=== PATIENT | female | born 1945 | race American Indian/Alaskan Native ===

== ENCOUNTER 2016-07-05 08:37 | Day surgery (SDC) | payer MEDICARE, OTHER ==
--- NOTE | 2016-07-05 07:14 | History and Physical - [facility] ---
CHIEF COMPLAINT/HISTORY OF CHIEF COMPLAINT: This patient presents with a history of post laminectomy radiculitis. On 01/17/12 a spinal cord stimulator [employer] was placed with initial good success. Over time she has been unable to gain appropriate patterns of stimulation across and into the back. Multiple attempts at reprogramming have failed. She was given the option to remove or replace with a different system and she opted to replace with a [employer] System. PAST MEDICAL HISTORY: Hypothyroidism and hypertension. PAST SURGICAL HISTORY: Knee replacement, hysterectomy, and breast surgery. MEDICATIONS ON ADMISSION: List to be provided. ALLERGIES: SULFA. FAMILY/PSYCHOSOCIAL HISTORY: Social history - Caffeine. Family history - Thyroid disease, coronary artery disease, and hypertension. SYSTEMS REVIEW: The patient is appropriate in no acute distress. The remainder of the systems review is positive for glasses, dentures, headaches, thyroid disease, sleep disturbance, blood pressure problems and degenerative arthritis. PHYSICAL EXAMINATION: Height is 5'5", weight is 200 pounds. Vital signs - Not available. HEENT: Within normal limits. LUNGS: Clear. HEART: Regular rate and rhythm. ABDOMEN: Nontender. MUSCULOSKELETAL: Examination of the musculoskeletal system shows the incision for the leads to approximate the generator pouch in the right posterior gluteal margin. Incisional sites are noted paramedian, all are intact. Sensory reyez are intact. NEUROLOGIC: Cranial nerves are intact. IMPRESSION: 1. INTRACTABLE LUMBAR RADICULITIS, ICD10 CODE M54.16 AND M54.17. 2. POST LUMBAR LAMINECTOMY SYNDROME, ICD10 CODE M96.1. 3. NONFUNCTIONAL SPINAL CORD STIMULATOR. PLAN: This patient is here for removal and replacement of a spinal cord stimulator. The procedure will be considered outpatient although an overnight stay will be evaluated. VANNESSA COOPER D.O. Date & Time JOB NUMBER: [id number] MTDD
[~2016-07-05 08:37] MED LIST: ACETAMINOPHEN 1000MG/100 ML PREMIX IV ONE; CEFAZOLIN 2 Gram 50 ML IVPB ONE; FAMOTIDINE 20MG TABLET PO ONE; MECLIZINE 25 MG TABLET PO ONE; METOCLOPRAMIDE 10 MG TABLET PO ONE
[2016-07-05] MEDS ORDERED: PROPOFOL 10 MG/ML VIAL IV ONE (14:00)
[2016-07-05] MEDS ORDERED: BUPIVACAINE 0.5% W/EPI MPF 30 ML VIAL IVP ONE (14:00)
[2016-07-05] MEDS ORDERED: CEFAZOLIN 1G VIAL IM ONE (14:00)
[2016-07-05] MEDS ORDERED: HYDROMORPHONE HCL 2 MG/ML VIAL IV ONE (14:00)
[2016-07-05] MEDS ORDERED: LIDOCAINE 1% W/EPI 1:200,000 MPF 30ML SQ ONE (14:00)
--- NOTE | 2016-07-06 10:35 | Operative Note ---
DATE OF SURGERY: 07/05/2016 PREOPERATIVE DIAGNOSES: 1. Lumbar radiculitis, ICD10 code M54.16 and M54.17. 2. Spinal cord stimulator with internal generator and 2 peripheral stimulators with internal generator. OPERATION: 1. Subcutaneous dissection and removal of 2 peripheral nerve stimulators. 2. Incision and subcutaneous dissection and removal of indwelling spinal cord stimulator. 3. Incision and subcutaneous dissection and removal of one internal pulse generator. 4. Fluoroscopic-guided left epidural access T11-12 Epimed, placement of spinal cord stimulator lead 1, a [employer] Infineon 16, 6 electrodes positioned left T7. 5. Complex programming of lead 1 for 20 minutes. 6. Fluoroscopic-guided epidural access left 12-1, placement of spinal cord stimulator lead 2, a [employer] Infineon 16, 6 electrodes positioned right T7. 7. Complex programming of lead 2 for 20 minutes. 8. Incision and subcutaneous dissection and anchoring of lead and lead 2 to supraspinous fascia using [employer] locking anchor. 9. Incision, subcutaneous dissection, and revision of subcutaneous pouch, right posterior gluteal margin for placement of generator identified as [employer] programmable rechargeable. 10. Tunneling between pouches, placement of external portion of lead 1 and lead 2 into generator pouch, each lead interfaced with bifurcate extension, each bifurcate extension interfaced to generator. 11. Placement of generator pouch securing to posterior fascia with nonabsorbable suture, placement of leads in the pouch, closure of incision with Vicryl for fascia, running subcuticular Vicryl for skin, closure of peripheral lead sites with Vicryl for fascia, subcuticular for skin. Dermabond closure at all sites. 12. Complex recovery room programming of internal generator, 2 stimulators recovery 20 minutes. Surgeon: Johan Jones DO Anesthesia: Local with sedation. Anesthesia Provider: Chandler Bell Indication: This patient presents with a history of intractable lumbar radiculitis. Currently managed by a single indwelling spinal cord stimulator and 2 peripheral nerve stimulators with internal generator all nonfunctional. She was given the option to remove or revise. She opted to revise. PROCEDURE: Intravenous line, vital signs monitoring, IV sedation. Prepped and draped in sterile technique the incisions for the 2 peripheral nerve stimulators infiltrated, incision made, subcutaneous dissection was conducted. The 2 peripheral leads were removed intact along with the suture anchor. At the spinal cord stimulator midline site approximating T12, skin infiltrated, incision made, and subcutaneous dissection conducted. The spinal cord stimulator lead and its anchor removed intact. The generator at the posterior superior gluteal margin site infiltrated, incision made, and subcutaneous dissection was conducted to the generator. The generator was then removed with its connections intact. At T11-12 and 12-1 on the left, skin infiltrated and then 2 curved bent needles with loss of resistance into the epidural space. At T11-12, spinal cord stimulator lead 1, a [employer] Infineon 16, 6 electrodes positioned left of the midline of T7. With the epidural access at 12- 1, similar technique, spinal cord stimulator lead 2, also a [employer] Infineon 16, 6 electrodes positioned right of T7. Complex programming of lead 1 over 20 minutes followed by complex programming of lead 2 over 20 minutes ultimately resulting in a pattern of stimulation across the back into the legs. Patient indicating we had all the areas of her pain. She was given the option to continue to program or remove the system or implant the system. She opted to implant. Question was repeated with the same response. The skin above and below both needles infiltrated, incision made, and subcutaneous dissection was conducted to the supraspinous fascia. The needles were removed and each lead was anchored at the supraspinous fascia with an anchoring device; a locking anchor [employer]innett and suture. At the right posterior gluteal margin generator pouch , skin infiltrated and the previous pouch was widened to accommodate the new generator identified as a [employer] programmable rechargeable. A tunneling tool was used to carry the 2 leads into the generator pouch and then each lead was interfaced with a bifurcate extension. Each bifurcate extension interfaced to the generator. Antibiotic irrigation and Bovie hemostasis. The generator was placed into the pouch and secured to the fascia with nonabsorbable suture. The leads were placed in their own pouch and then all incisions were closed with Vicryl for fascia and running subcuticular Vicryl for skin. Dermabond to approximate the edges of all wounds. She was transported to the recovery room stable showing no side effects from the procedure or the sedation. When fully awake and alert, complex programming in the recovery room performed for over 20 minutes reestablishing stimulation of pain control in all the appropriate areas. She was instructed on the use of this system, provided with the information on error messaging, then prepared for discharge. DISCHARGE INSTRUCTIONS: 1. Sites to remain clean and dry. No showering or bathing for 12-24 hours and then she can shower with the Dermabond. 2. Standard medications resumed including Levaquin the antibiotic 500 mg once a day for 14 days. 3. Office will contact the patient at home and set up an evaluation to inspect sites in 3-5 days. Throughout that period of time, her activities should stay low. All other instructions provided, numbers to contact if problems given. She was then prepared for discharge. Johan Jones DO CC: Dr. Robbie WHITE
--- NOTE | 2016-07-10 13:45 | RADIOLOGY REPORT ---
EXAM: AP LUMBAR SPINE HISTORY: SPINAL STIMULATOR REMOVAL AND REPLACEMENT. TECHNIQUE: AP view of the lumbar spine was obtained. Comparison: Spine radiograph 01/17/12. FINDINGS: Power pack overlies the right lower quadrant. Two spinal leads overlie the thoracic spine extending to the mid T7 level. Moderate to advanced disk disease throughout the thoracic and lumbar spine. IMPRESSION: 1. SPINAL STIMULATOR LEADS EXTEND CEPHALAD TO THE MID T7 LEVEL. 2. MODERATE TO EXTENSIVE DEGENERATIVE DISK DISEASE OF THE THORACIC AND LUMBAR SPINE. JOB NUMBER: [id number] MTDD
== END 2016-07-05 14:17 | disposition home or self-care (01) ==
LOC: SUR 08:37
PROVIDERS: ATTEND Pain Medicine Interventional Pain Medicine
DX: T85.890A Other specified complication of nervous system prosthetic devices, implants and grafts, initial encounter (principal); T85.193A Other mechanical complication of implanted electronic neurostimulator, generator, initial encounter; E03.9 Hypothyroidism, unspecified; I10 Essential (primary) hypertension; E11.9 Type 2 diabetes mellitus without complications; Z79.84 Long term (current) use of oral hypoglycemic drugs; E78.00 Pure hypercholesterolemia, unspecified
CPT/HCPCS: 72020; 95972; J0690

== ENCOUNTER 2017-09-19 09:02 | Day surgery (SDC) | payer MEDICARE, OTHER ==
--- NOTE | 2017-09-19 04:24 | History and Physical Report ---
DATE: 09/18/2017. CHIEF COMPLAINT AND HISTORY OF CHIEF COMPLAINT: This patient presents with a history of an intractable lumbar radiculopathy. Due to the failure of all therapies, she presents today for implantation of a spinal catheter with an internal catheter spinal infusion trial with hydromorphone. PAST MEDICAL HISTORY: Hypothyroidism, hypertension. PAST SURGICAL HISTORY: Knee replacement, hysterectomy, breast surgery. MEDICATIONS ON ADMISSION: To be provided. ALLERGIES: Sulfa. SOCIAL HISTORY: Caffeine. FAMILY HISTORY: Thyroid disease, diabetes, coronary artery disease, hypertension. REVIEW OF SYSTEMS: The patient is appropriate and in no acute distress. The remainder of the systems review shows glasses, dentures, headaches, thyroid disease, sleep disturbance, blood pressure problems, degenerative arthritis. PHYSICAL EXAMINATION: General: Height and weight unavailable. Vital Signs: Not available. HEENT: Within normal limits. Lungs: Clear. Heart: Regular rate and rhythm. Abdomen: Nontender. Musculoskeletal: Examination of the musculoskeletal system shows diffuse tenderness throughout the lumbar spine. Range of motion does produce pain into both legs, right greater than left. Motor and sensory field function shows sensory deficits as well as motor weakness in the right leg. Ambulation: Assistive device utilized. Neurologic: Cranial nerves are intact. IMPRESSION: LUMBAR RADICULOPATHY, ICD-10 CODE M54.16 AND M54.17. PLAN: The patient is here for an implanted spinal catheter infusion trial with hydromorphone. The potential risks, side effects, and complications have all been carefully reviewed. Information from the marketing automation specialist has been provided. Direct contact and discussion with a fraud representative has been provided. The patient understands the incision will be made, the catheter will be implanted. If the trial fails, the implanted catheter will need to be removed. Should the trial succeed, a pump will be implanted and interfaced to the indwelling catheter, and the catheter will not be changed. All of the risks, side effects , and complications have been explained by way of documentation, written information, and discussion with the patient. She understands and has consented. We will consider this outpatient, although an overnight stay will be evaluated. JOB NUMBER: [id number] cc: Dr. Robbie Darling M.D. CINDY
[~2017-09-19 09:02] MED LIST changes: +ACETAMINOPHEN 1,000 MG/100 ML BTL IV ONE; -ACETAMINOPHEN 1000MG/100 ML PREMIX IV ONE; +CEFAZOLIN 2 Gram 2 GM/50 ML BAG IVPB ONE; -CEFAZOLIN 2 Gram 50 ML IVPB ONE; +HYDROMORPHONE PF 2MG/ML AMP 0.008 MG in 0.9 % SODIUM CHLORIDE 10ML VIA 0.996 ML IV ONE; +HYDROMORPHONE PF 2MG/ML AMP 8 MG in 0.9 % SODIUM CHLORIDE 500ML 496 ML IV ONE
[2017-09-19] MEDS ORDERED: LIDOCAINE 1% W/EPI 1:200,000 MPF 30ML SQ ONE (09:03)
[2017-09-19] MEDS ORDERED: CEFAZOLIN 1G VIAL IM ONE (09:03)
[2017-09-19] MEDS ORDERED: PROPOFOL 10 MG/ML VIAL IV ONE (09:03)
[2017-09-19] MEDS ORDERED: BUPIVACAINE 0.5% W/EPI MPF 30 ML VIAL IVP ONE (09:03)
[2017-09-19] MEDS ORDERED: *PACU ONLY* KETAMINE HCL 10 MG/ML (20ML) VIAL IV ONE (09:03)
[2017-09-19] MEDS ORDERED: MIDAZOLAM HCL 2MG/2ML VIAL IV ONE (09:03)
[2017-09-19] MEDS ORDERED: FENTANYL PF 100MCG/2ML VIAL IV ONE (09:03)
[2017-09-19] MEDS ORDERED: DIPHENHYDRAMINE HCL 50 MG/ML VIAL IVP PRN ×2 (15:35)
[2017-09-19] MEDS ORDERED: METOCLOPRAMIDE HCL 10 MG/2 ML VIAL IVP PRN (15:35)
[2017-09-19] MEDS ORDERED: NALOXONE 0.4 MG/1 ML VIAL IVP PRN (15:35)
[2017-09-19] MEDS ORDERED: SENNOSIDES/DOCUSATE SODIUM UD CAPSULE PO PRN ×2 (15:35)
[2017-09-19] MEDS ORDERED: HYDROCODONE/APAP 7.5/325MG TABLET PO PRN (15:35)
[2017-09-19] MEDS ORDERED: DIPHENHYDRAMINE HCL 25 MG CAPSULE PO PRN ×2 (15:35)
[2017-09-19] MEDS ORDERED: HYDROMORPHONE HCL 2 MG/ML VIAL IM PRN ×2 (15:35)
[2017-09-19] MEDS ORDERED: AL HYDROX/MAG HYDROX 30ML UD PO PRN (15:35)
[2017-09-19] MEDS ORDERED: OXYCODONE/APAP 10MG-325MG TABLET PO PRN ×2 (15:35)
[2017-09-19] MEDS ORDERED: ACETAMINOPHEN 325 MG TAB PO PRN ×2 (15:35)
[2017-09-19] MEDS ORDERED: METOCLOPRAMIDE 10 MG TABLET PO PRN (15:35)
[2017-09-19] MEDS ORDERED: TEMAZEPAM 15 MG CAPSULE PO PRN ×2 (15:35)
[2017-09-19] MEDS ORDERED: LOPERAMIDE 2 MG CAPSULE PO PRN (15:37)
[2017-09-19] MEDS: GABAPENTIN 300 MG CAPSULE PO SCH ×2 (15:47→21:40)
[2017-09-19] MEDS: BACLOFEN 10 MG TABLET PO SCH ×2 (15:47→21:40)
[2017-09-19] MEDS: CEFAZOLIN 2 Gram 2 GM/50 ML BAG IVPB SCH (21:36)
[2017-09-19] MEDS: DOCUSATE SODIUM 100 MG CAPSULE PO SCH (21:40)
[2017-09-19] MEDS: SIMVASTATIN 10MG TABLET PO SCH (21:40)
[2017-09-19] MEDS: HYDROCODONE/APAP 7.5/325MG TABLET PO PRN (21:45)
[2017-09-19] MEDS: RINGERS SOLUTION,LACTATED 1,000 ML IV SCH (21:46)
[2017-09-19] MEDS ORDERED: METFORMIN 500 MG TABLET PO SCH (22:00)
[2017-09-19] MEDS ORDERED: PANTOPRAZOLE SODIUM 40 MG TABLET PO SCH (22:00)
[2017-09-20] MEDS: RINGERS SOLUTION,LACTATED 1,000 ML IV SCH ×2 (03:40→08:45)
[2017-09-20] MEDS: CEFAZOLIN 2 Gram 2 GM/50 ML BAG IVPB SCH ×2 (03:55→11:35)
[2017-09-20] MEDS: HYDROCODONE/APAP 7.5/325MG TABLET PO PRN ×2 (03:57→11:43)
[2017-09-20] MEDS: DOCUSATE SODIUM 100 MG CAPSULE PO SCH (09:30)
[2017-09-20] MEDS: GABAPENTIN 300 MG CAPSULE PO SCH (09:30)
[2017-09-20] MEDS: BACLOFEN 10 MG TABLET PO SCH (09:30)
[2017-09-20] MEDS: SIMVASTATIN 10MG TABLET PO SCH (09:30)
[2017-09-20] MEDS ORDERED: LEVEMIR FLEXTOUCH 100 UNIT/ML INSULIN PEN SQ SCH (10:00)
--- NOTE | 2017-09-20 15:09 | RADIOLOGY REPORT ---
EXAM: LUMBAR SPINE HISTORY: PAIN PUMP PLACEMENT. TECHNIQUE: A single portable AP view of the lumbar spine was performed. FINDINGS: Two lead tips are at the T8 level. IMPRESSION: TWO LEAD TIPS ARE AT THE T8 LEVEL. JOB NUMBER: [id number] [facility]
--- NOTE | 2017-09-20 21:34 | Operative Note - [facility] ---
DATE OF SURGERY: 09/19/17 PREOPERATIVE DIAGNOSES: POST LUMBAR LAMINECTOMY SYNDROME, ICD-10 CODE = M96.1 WITH LUMBAR RADICULOPATHY , ICD-10 CODE = M54.16 AND M54.17. SURGERY: 1. FLUOROSCOPICALLY-GUIDED ACCESS SPINAL SPACE AT L2-3, PLACEMENT OF THIN- WALLED SPINAL CATHETER ADVANCED TO T11. 2. DIAGNOSTIC MYELOGRAPHY WITH RADIOLOGIC SUPERVISION AND INTERPRETATION. 3. SPINAL OPIOID BOLUS HYDROMORPHONE 0.004 MG INTO SPINAL SPACE. 4. INCISION, SUBCUTANEOUS DISSECTION, AND ANCHORING OF SPINAL CATHETER TO SUPRASPINOUS FASCIA WITH AN ANCHOR AND NONABSORBABLE SUTURE. 5. INCISION, SUBCUTANEOUS DISSECTION, AND CREATION OF SUBCUTANEOUS POUCH AT LEFT POSTERIOR SUPERIOR GLUTEAL MARGIN FOR PLACEMENT OF SMALL POUCH. SUBCUTANEOUS TISSUE DISSECTED CREATING THE POUCH. 6. TUNNELING SPINAL CATHETER INTO POSTERIOR GLUTEAL POUCH. AT POUCH, CATHETER RESECTED AND REVISED WITH SECOND CATHETER COMPONENT BY WAY OF A CONNECTOR. 7. TUNNELING SECONDARY CATHETER COMPONENT 6 CM SUPERIOR, EXITING THE SKIN. EXTERNAL CATHETER INTERFACED TO EXTERNAL PUMP SET TO DELIVER HYDROMORPHONE AT 0.08 MG A DAY. 8. EPIDURAL BLOOD PATCH AT L3-4, 20 ML AUTOLOGOUS BLOOD STERILE TECHNIQUE LEFT ANTECUBITAL. SURGEON: VANNESSA COOPER D.O. ANESTHESIA: LOCAL SEDATION. ANESTHESIA PROVIDER: CHUCKY DOSS CRNA INDICATION: This patient presents with a history of an intractable post laminectomy radiculopathy. Due to the failure of therapy, she is here for an implanted spinal catheter infusion trial with Hydromorphone to determine if the implantation of a permanent system can be of any value in pain control. SURGERY: Intravenous line, vital sign monitoring, IV sedation, prepped and draped sterile technique. Under imaging, the spinal interspace at L2-3 was identified above the multiple laminectomy sites. Skin infiltrated and then a # 20 gauge spinal needle beveled with a long axis paramedian approach using AP and lateral imaging was inserted into the spinal canal, advanced under lateral imaging. With CSF flow, a thin-walled spinal catheter was advanced and positioned at T11. This catheter was clamped to limit CSF loss. The skin above and below the needle infiltrated, incision made and subcutaneous dissection was conducted to the supraspinous fascia. A pursestring suture was placed around the needle, the needle removed, the pursestring suture tightened to limit CSF leak around the needle. The catheter was unclamped. CSF continued to be noticed through the catheter. Diagnostic myelography was performed. Resulting flow characteristics were smooth and linear in the space and appropriate noted confirming the catheter tip and functionality. A bolus of Hydromorphone 0.004 mg was given into the spinal space. The catheter was clamped to stop CSF leak. At the left posterior gluteal margin, a site ultimately for the pump, skin infiltrated, incision made and subcutaneous dissection was conducted to form a small pouch. A tunneling tool was used to carry the spinal catheter into the posterior pouch and then this catheter was interfaced with the second catheter component by way of a connector. The second catheter component was then tunneled 6 cm above this site, exiting the skin. The external catheter was then interfaced to an external pump, which was set to deliver Hydromorphone at 0.08 mg a day. The midline incision was then closed with Vicryl for fascia and a running nylon for skin. The left posterior gluteal pouch was then closed with running nylon. At L3-4, one level below the dural puncture, skin infiltrated and an #18 gauge Tuohy needle with [id number] into the space. 20 mL autologous blood drawn with sterile technique left antecubital, blood placed onto the field maintaining sterility and then an epidural blood patch was performed at this level with this blood. Needle removed. Dressing was placed securing the catheter, incisions, and all connections under sterile dressing. She was transported flat with pillow under head and knees, stable. No abnormal findings. Full functionality of the extremities. No significant pain. She will be kept flat for four hours, slowly elevated for one, and then kept overnight for observation and discharged in the morning. DISCHARGE INSTRUCTIONS: 1. The sites are to remain clean and dry. No showering or bathing in any way that would disrupt dressings. If it happens, contact the clinic. 2. Standard medications resumed, including Levaquin, the antibiotic, 500 mg once a day for 14 days. 3. The trial is scheduled to run 14 days. During this period of time, we will evaluate functionality, quality of life, and medication reduction. Three increases will be scheduled in the office. The trial was started today at a dose of 0.08 mg, which is sufficient to help but should not, more than likely, control all pain. Her first increase will be within 2 to 3 days, at which point , we would expect to get closer to her pain requirements. At the end of the two- week period, we will either implant the pump or remove the implanted catheter. Side-effects including respiratory depression, nausea, vomiting, constipation, urinary retention, lightheadedness or rash have all been discussed and reviewed. cc: Dr. Castillo JOB NUMBER: [id number] MTDD
== END 2017-09-20 12:55 | disposition home or self-care (01) ==
LOC: SUR 09:02 → MEDSURG 14:05 → SUR 09-20 12:55
PROVIDERS: ATTEND Pain Medicine Interventional Pain Medicine
DX: M96.1 Postlaminectomy syndrome, not elsewhere classified (principal); M54.16 Radiculopathy, lumbar region; M54.17 Radiculopathy, lumbosacral region; E11.9 Type 2 diabetes mellitus without complications; Z79.4 Long term (current) use of insulin; E78.00 Pure hypercholesterolemia, unspecified
CPT/HCPCS: 36416; 72020; 82948; 85002; J0690; J1170; J7040

== ENCOUNTER 2017-10-03 10:10 | Day surgery (SDC) | payer MEDICARE, OTHER ==
--- NOTE | 2017-10-03 07:57 | History and Physical Report ---
DATE: 10/03/2017. CHIEF COMPLAINT AND HISTORY OF CHIEF COMPLAINT: This patient presents with an implanted spinal catheter infusion trial with hydromorphone. She is here for permanent implant. During the trial period, there was an accidental injection of her insulin into the infusion bag. The infusion was stopped and she was sent to the emergency room. She was fully evaluated, and the emergency room physician felt there were no indications of spinal flow and there were no indications of abnormality. She had treated her blood sugar separately, and her blood sugar was fully controlled. The infusion had been clamped, the batteries removed, and the pump was completely stopped. There was no spinal infusion of any contaminated medication. Over the last three to five days, she has been totally asymptomatic except for elevating pain. She had achieved up to 75 percent relief through the infusion which was stopped at 0.08 mg a day. She is requesting permanent implant. PAST MEDICAL HISTORY: Hypothyroidism, hypertension, type 2 diabetes. PAST SURGICAL HISTORY: Knee replacement, hysterectomy, breast surgery. MEDICATIONS ON ADMISSION: To be provided. ALLERGIES: Sulfa. SOCIAL HISTORY: Caffeine. FAMILY HISTORY: Thyroid disease, diabetes, coronary artery disease, hypertension. REVIEW OF SYSTEMS: The patient appears appropriate and in no acute distress. The remainder of the systems review shows glasses, dentures, headaches, thyroid disease, sleep disturbance, blood pressure problems, degenerative arthritis. PHYSICAL EXAMINATION: General: Height and weight unavailable. Vital Signs: Not available. HEENT: Within normal limits. Lungs: Clear. Heart: Regular rate and rhythm. Abdomen: Nontender. Musculoskeletal: Examination of the musculoskeletal system initially shows the dressings for the implanted catheter to be in place and intact. This had been redressed by the clinic when she came in after her visit to the emergency room. The infusion device is completely off. Her underlying pattern of pain is in the low back with a bilateral lower extremity extension, right greater than left. There are some mild sensory and motor abnormalities in the right lower extremity. Ambulation: Assistive device dependent. Neurologic: Cranial nerves are intact. IMPRESSION: 1. LUMBAR RADICULOPATHY, ICD-10 CODE M54.16 AND M54.17. 2. IMPLANTED SPINAL CATHETER INFUSION TRIAL WITH HYDROMORPHONE. PLAN: Overall, except for the above incident, she seems to be doing well. Our plan is to aspirate the catheter to ensure there are no contents in the catheter. Once we have cleared the catheter, we will restart the infusion. This has been verified and checked through the [employer] clinical specialist as appropriate. We will consider the procedure outpatient, although an overnight stay will be evaluated. The potential risks, side effects, and complications, in particular with the event of the insulin in the infusion bag, have been discussed. The patient understands and has agreed and wants to move forward. JOB NUMBER: [id number] cc: Arturo Natarajan
[~2017-10-03 10:10] MED LIST changes: +HYDROMORPHONE HCL 0.04 GM in 0.9 % SODIUM CHLORIDE 10ML VIA 40 ML IV ONE; -HYDROMORPHONE PF 2MG/ML AMP 8 MG in 0.9 % SODIUM CHLORIDE 500ML 496 ML IV ONE
[2017-10-03] MEDS ORDERED: FENTANYL PF 100MCG/2ML VIAL IV ONE (10:11)
[2017-10-03] MEDS ORDERED: PROPOFOL 10 MG/ML VIAL IV ONE (10:11)
[2017-10-03] MEDS ORDERED: LIDOCAINE 2% MDV (20MG/ML) 20ML VIAL IV ONE (10:11)
[2017-10-03] MEDS ORDERED: CEFAZOLIN 1G VIAL IM ONE (10:11)
[2017-10-03] MEDS ORDERED: BUPIVACAINE 0.5% W/EPI MPF 30 ML VIAL IVP ONE (10:11)
[2017-10-03] MEDS ORDERED: MIDAZOLAM HCL 2MG/2ML VIAL IV ONE (10:11)
[2017-10-03] MEDS ORDERED: LIDOCAINE 1% W/EPI 1:200,000 MPF 30ML SQ ONE (10:11)
--- NOTE | 2017-10-06 07:41 | Operative Note - [place] ---
DATE OF SURGERY: 10/03/17 PREOPERATIVE DIAGNOSES: 1. LUMBAR RADICULOPATHY, ICD-10 CODE - M54.16 AND M54.17. 2. IMPLANTED SPINAL CATHETER INFUSION TRIAL HYDROMORPHONE. OPERATION: 1. FLUOROSCOPICALLY-GUIDED INCISION, SUBCUTANEOUS DISSECTION, AND REMOVAL OF EXTERNAL CATHETER. 2. FLUOROSCOPICALLY-GUIDED RESECTION AND REVISION OF INDWELLING SPINAL CATHETER WITH CONNECTOR AND SECOND CATHETER COMPONENT. 3. INCISION, SUBCUTANEOUS DISSECTION, AND CREATION OF SUBCUTANEOUS POUCH AND LEFT POSTERIOR GLUTEAL MARGIN FOR PLACEMENT OF PUMP IDENTIFIED MEDTRONIC 40 ML PROGRAMMABLE. 4. PLACEMENT OF PUMP ONTO FIELD PREFILLED HYDROMORPHONE 1 MG PER ML INTERFACED TO REVISED CATHETER BY WAY OF CONNECTOR. 5. PLACEMENT OF PUMP INTO FORMED SECURING TO POSTERIOR FASCIA WITH NONABSORBABLE SUTURE THREE POINTS PUMP EYELETS. 6. PLACEMENT OF CURVED 24-GAUGE HUTCHINSON NEEDLE TO ACCESS PORT PROGRAMMABLE PUMP ASPIRATING AND CLEARING CATHETER OF OPIOID AND CSF MIXTURE, 1 ML. 7. DIAGNOSTIC MYELOGRAPHY WITH RADIOLOGIC SUPERVISION AND INTERPRETATION. 8. CLOSURE OF INCISION, STRATAFIX SUTURE, 2-0 FASCIA, 3-0 SUBCUTICULAR, DERMABOND CLOSURE. 9. PROGRAMMING OF PUMP TO DELIVER BY CONTINUOUS INFUSION HYDROMORPHONE AT 0.1 MG PER DAY. SURGEON: VANNESSA COOPER D.O. ANESTHESIA: LOCAL SEDATION. ANESTHESIA PROVIDER: CALE DANG CRNA INDICATION: This patient presents with a history of intractable lumbar radiculopathy. Due to the failure of therapy, implanted spinal catheter infusion trial with Hydromorphone was initiated. She achieved up to 75% pain control. Unfortunately at the latter part of the trial, she inadvertently administered her subcut insulin into the infusion bag for which reason the infusion was stopped, the battery and pump disabled, and the catheter clamped. She was then referred to the local Emergency Room where she was evaluated by Emergency Medicine and found to be totally asymptomatic. Today, she was given the option to remove the entire system or implant; she opted to implant. PROCEDURE: Intravenous line, vital sign monitoring, IV sedation, prepped and draped sterile technique. Patient position on the operating room table prone. Sterile prep, sterile technique. A small subcutaneous pouch at the left posterior gluteal margin was infiltrated with local, incision made, and subcutaneous dissection was conducted to the connector interfacing indwelling spinal catheter with external catheter. The interface was clamped and the external catheter cut and removed by pulling away from the site. The internal catheter or indwelling was then revised and resected with a second catheter component by way of a connector. At that small pouch, subcutaneous dissection was conducted to perform a pouch of suitable size and depth for the pump identified as a Medtronic 40 mL Programmable. The pump was then placed onto the field prefilled Hydromorphone 1 mg per mL. The revised catheter was then interfaced to the pump. Antibiotic irrigation and Bovie for hemostasis. The pump was placed into the pouch and secured to the posterior fascia with nonabsorbable suture at three points pump eyelets. With the pump secured to the pouch, a curved 24-gauge Hutchinson needle was inserted into the axis port and 1 mL of catheter contents was aspirated clearing the catheter of opioid and CSF mixture. Diagnostic myelography was performed; the resulting flow characteristics were smooth and linear in the space. No obstructions and appropriate flow noted. Tip of the catheter at T11-12 identified confirming full functionality. The pouch was then closed using STRATAFIX suture; a 2-0 for fascia and 3-0 subcuticular. Dermabond closure was then used to secure the edges and approximate the wound. She was transported to the Recovery Room. The pump had been programmed to deliver by continuous infusion Hydromorphone at 0.1 mg per day. Because of the lack of home assistance, she will stay overnight for observation and discharged in the morning. DISCHARGE INSTRUCTIONS: 1. Sites will remain clean and dry. No showering or bathing in any way that would disrupt dressings; if it happens, contact the clinic. 2. Standard medications resumed including the antibiotic, Levaquin, 500 mg once a day. 3. The trial completed. The pump was started slightly above the last trial dose. She will maintain minimum activities, take her antibiotic, Levaquin, 500 mg once a day for 14 days. She will be seen in the office in 7-10 days. The office will call her within the next 24 hours to set that appointment up to evaluate the sites. Until then, keep her activities low. All other instructions provided, numbers to contact, problems given. Spinal opioid side-effects; respiratory depression, nausea, vomiting, constipation, urinary retention, lightheadedness, or rash have all been discussed and reviewed. cc: Dr. Avalos JOB NUMBER: [id number] [facility]
--- NOTE | 2017-10-06 12:30 | RADIOLOGY REPORT ---
DATE: 10/03/2017 at 2:23 p.m. EXAM: SINGLE THORACOLUMBAR AP SPINE. HISTORY: Post pain catheter pump implant. TECHNIQUE: Single AP view of the lower thoracic and upper lumbar spine was obtained from about the level of T10 to L5. COMPARISON: AP spine 09/19/2017. FINDINGS: The previously seen battery pack in the right lower quadrant again seen and is apparently associated with two electrode leads partially seen along the upper edge of the image today. These were present previously as well and apparently are not the device of clinical interest currently. There is now a battery pack in the left lower quadrant, and there appears to be a faint catheter-like structure associated with this extending to the spine. There is a tiny metallic dot-like density over the spine at the T11 level which is presumably the tip of the pain pump catheter; although correlation with the procedure itself is suggested. Degenerative change in the lumbar spine. IMPRESSION: 1. TINY METALLIC DENSITY OVERLYING THE T11 VERTEBRA PRESUMABLY REPRESENTS THE TIP OF THE PAIN PUMP CATHETER. 2. APPARENT PRE-EXISTING ELECTRODE LEADS PARTIALLY SEEN OVERLYING THE LOWER THORACIC SPINE WELL. JOB NUMBER: [id number] [facility]TDD
== END 2017-10-03 15:30 | disposition home or self-care (01) ==
LOC: SUR 10:10
PROVIDERS: ATTEND Pain Medicine Interventional Pain Medicine
DX: M54.16 Radiculopathy, lumbar region (principal); M54.17 Radiculopathy, lumbosacral region; E11.9 Type 2 diabetes mellitus without complications; E78.00 Pure hypercholesterolemia, unspecified; G47.33 Obstructive sleep apnea (adult) (pediatric)
CPT/HCPCS: 62350; 62362; 01936; 62367; 72020; Q9967; J3010; J0690; J1170; C1755

== ENCOUNTER 2018-04-25 09:19 | Day surgery (SDC) | payer MEDICARE, OTHER ==
[~2018-04-25 09:19] MED LIST changes: -FAMOTIDINE 20MG TABLET PO ONE; -HYDROMORPHONE HCL 0.04 GM in 0.9 % SODIUM CHLORIDE 10ML VIA 40 ML IV ONE; -HYDROMORPHONE PF 2MG/ML AMP 0.008 MG in 0.9 % SODIUM CHLORIDE 10ML VIA 0.996 ML IV ONE; -MECLIZINE 25 MG TABLET PO ONE; -METOCLOPRAMIDE 10 MG TABLET PO ONE
[2018-04-25] MEDS ORDERED: FENTANYL PF 100MCG/2ML VIAL IV ONE (09:20)
[2018-04-25] MEDS ORDERED: LIDOCAINE 2% MDV (20MG/ML) 20ML VIAL IV ONE (09:20)
[2018-04-25] MEDS ORDERED: MIDAZOLAM HCL 2MG/2ML VIAL IV ONE (09:20)
[2018-04-25] MEDS ORDERED: PROPOFOL 10 MG/ML VIAL IV ONE (09:20)
[2018-04-25] MEDS ORDERED: DEXAMETHASONE 4 MG/ML 1ML VIAL IVP ONE (09:20)
[2018-04-25] MEDS ORDERED: ROPIVACAINE HCL (NAROPIN) /PF 5MG/ML 20ML VIAL IV ONE (09:20)
[2018-04-25] MEDS ORDERED: EPHEDRINE SULFATE 50 MG/ML ML IV ONE (09:20)
[2018-04-25] MEDS ORDERED: SEVOFLURANE 250 ML INH ONE (09:20)
[2018-04-25 09:32] LABS: BASO % 0.4 % (0-6); EOS % 6.2 % (0-6); GRAN % 61.1 % (47-80); HEMATOCRIT 37.8 % (35.0-47.0); LYMPH % 24.2 % (16-45); MEAN CELL VOLUME 92.4 fl (81-97); MEAN CORPUSCULAR HEMOGLOBIN 29.3 pg (27-33); MEAN CORPUSCULAR HGB CONC 31.7 g/dl (32-36); MEAN PLATELET VOLUME 8.5 fl (7.4-10.4); MONO % 8.1 % (0-9); PLATELET COUNT 202 K/uL (130-400); RED BLOOD COUNT 4.09 M/uL (3.80-5.40); RED CELL DISTRIBUTION WIDTH 15.5 % (11.5-14.5); WHITE BLOOD COUNT W/O DIFF 6.9 K/uL (4.2-12.2)
[2018-04-25 09:47] LABS: BLOOD UREA NITROGEN 7 mg/dL (8-23); CREATININE 0.4 mg/dL (0.5-0.9); EST GLOMERULAR FILTRATION RATE > 60 mL/min; GLUCOSE,RANDOM 112 mg/dL (74-109)
--- NOTE | 2018-04-26 10:00 | Operative Note ---
DATE OF SURGERY: 04/25/2018 Surgeon: Sascha Hawley DO PREOPERATIVE DIAGNOSIS: Carpometacarpal arthritis of the right thumb. POSTOPERATIVE DIAGNOSIS: Carpometacarpal arthritis of the right thumb. OPERATION: Carpometacarpal hemiarthroplasty of the right thumb. DESCRIPTION OF PROCEDURE: This 73-year-old female was taken to the operating room and placed in the supine position on the operating room table. General anesthetic was administered. The right upper extremity was elevated. It was prepped with Hibiclens and draped in the usual sterile fashion. It was exsanguinated and the tourniquet inflated to 250 mmHg. An incision was made over the dorsal surface of the metacarpal and carpometacarpal joint dissecting down through the skin and subcutaneous tissue. Hemostasis obtained with the electrocautery. The interval between the extensor longus and brevis to the thumb was used, and the dorsum of the bone was easily identified and cleared of soft tissue. The superficial branch of the radial nerve was retracted in an ulnar direction dorsally. A sharp incision was made in the periosteum and joint capsule on the dorsal surface, and subperiosteal elevation was carried out around the proximal metacarpal and also the trapezium to expose the CMC joint. Once adequate exposure was accomplished, a sizing device was placed and a size small was seen to be the appropriate size. We then passed the K-wire into the metacarpal and checked it with the image intensifier and found it to be in excellent position. An awl was used to open up the hole for the acceptance of the guide. Subsequently, the size small sizer was used to measure the bone resection from the proximal metacarpal. A irene was made on the metacarpal and once the guide had been set in the appropriate position, the image intensifier was again used to confirm excellent position and alignment. Subsequently, the resection was made removing approximately 4 mm of bone. The wafer of bone was removed. We then directed our attention to the trapezium. Subsequently, after adequate exposure, a K-wire was placed into the appropriate spot in the trapezium and this position was checked with the image intensifier and the reamer was subsequently used to a size small to ream the trapezium to the appropriate level and the wound was irrigated with lactated Ringer's solution. We removed the K-wire and the trial component was inserted and the image intensifier was used to confirm satisfactory position and alignment. Once this had been accomplished, the wound was again irrigated. A trial reduction was used with the size 20 small. We had broached the metacarpal shaft first with a size 10 and then the 20. We felt we had excellent quality to get a good solid fit and the broach was hammered in and hammered out. Then, with the trial component in place, we reduced it, checked it with the image intensifier, and found it to be satisfactory. The trial component was then removed and the wound copiously irrigated with lactated Ringer's solution. The final component, a size 20 small Mccormick NuGrip prosthesis, was implanted in the metacarpal. It was reduced and the image intensifier was used to take pictures of this device in place. It was felt to be satisfactory, and the capsule was reapproximated with 0 Vicryl. The subcutaneous tissue closed with 4-0 Vicryl and the skin with a running 4-0 nylon suture. Sterile dressings were applied with a plaster of splint immobilization with the wrist in slight dorsiflexion, the thumb abducted. GROSS PATHOLOGY: This patient demonstrated full-thickness articular cartilage loss noted at the carpometacarpal joint of the right thumb, and the patient's radial artery was identified and protected during the entire course of the procedure. CINDY
== END 2018-04-25 13:00 | disposition home or self-care (01) ==
LOC: SUR 09:19
PROVIDERS: ATTEND Orthopaedic Surgery
DX: M13.842 Other specified arthritis, left hand (principal); I10 Essential (primary) hypertension; E78.00 Pure hypercholesterolemia, unspecified; E11.9 Type 2 diabetes mellitus without complications; Z79.4 Long term (current) use of insulin; G89.29 Other chronic pain; G47.33 Obstructive sleep apnea (adult) (pediatric); F17.210 Nicotine dependence, cigarettes, uncomplicated
CPT/HCPCS: 25447; 01830; 64450; 85025; 80048; 36416; 82948; J3010; J0690; J2795; 76942